=== PATIENT | male | born 1980 | race Caucasian/White ===

== ENCOUNTER 2016-08-07 08:41 | Emergency (ER) | payer OTHER ==
--- NOTE | 2016-08-16 19:43 | ER ---
ADMIT: 08/07/2016 RM/LOC: ER [facility] MR#: [id number] [facility] [address] [place] [id number] SHANTELL LONDON , Emergency Room Report SEX: M AGE: 35 : 1980 DATE: 08/07/2016 CHIEF COMPLAINT: Left wrist pain. HISTORY OF PRESENT ILLNESS: The patient is a 35-year-old male, who is left- hand dominant, comes in complaining of left wrist pain. This originally began about 5 to 6 weeks ago when he was at his job and ended up striking a goalie material with the palm of his hand and felt some twinge of pain shortly after he did that. Since then, he has had increasing left wrist pain. He has actually been wearing a wrist immobilizer splint for the past couple weeks, but not getting any better, and has actually developed some pain in his elbow at this time. He does not have any swelling in the forearm, nothing that sounds like he would be having a DVT or compartment syndrome. He does have some mild intermittent tingling in his fingers. 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 PAST MEDICAL HISTORY: Knee surgery. MEDICATIONS: 1. Zyrtec. 2. Tylenol. ALLERGIES: NONE. SOCIAL HISTORY: Smokes quarter pack a day. Uses alcohol occasionally. Denies drug use. PHYSICAL EXAMINATION: VITAL SIGNS: Reviewed and other than a heart rate of 107 they are were unremarkable. The examination of patient's left wrist reveals he has some limited range of motion primarily with ulnar deviation of the wrist. He has no specific snuffbox tenderness that I can appreciate. No swelling can be appreciated. He has good cap refill. Good pulse in the radial artery. He has full range of motion of the digits. He does have some tenderness over the flexor retinaculum. The patient is in no respiratory distress. No other injuries can be appreciated. The patient is alert, oriented. EMERGENCY DEPARTMENT COURSE: Based on his complaint of how he initially injured the wrist and the fact that he competes in competitive foosball, I am ADMIT: 08/07/2016 RM/LOC: ER [facility] MR#: [id number] [facility] [address] [place] [id number] SHANTELL LONDON , Emergency Room Report SEX: M AGE: 35 : 1980 concerned that he may have an issue with repetitive motion and possibly carpal tunnel. He was given a shot of Toradol here, and Mayo, and will be discharged home with some Mayo to be used as needed for pain. I will actually put him on a prednisone taper and his first dose of steroids were given in the ER also. He is to continue wearing his wrist splint, and he already has an appointment set up with his physician that he was supposed to see for this complaint. I want him to keep that appointment and see how he is responding to steroid treatments and as noted continue to wear the wrist splint. DIAGNOSES: 1. Left wrist pain. 2. Possible carpal tunnel. Harry Braga MD/ miriam JOB #: [id number] CC: Harry Braga MD, Attending Physician
== END 2016-08-07 11:30 | disposition home or self-care (01) ==
LOC: ER 08:41
DX: M25.532 Pain in left wrist (principal); F17.210 Nicotine dependence, cigarettes, uncomplicated; Z79.899 Other long term (current) drug therapy